=== PATIENT | female | born 1970 | race Caucasian/White ===

== ENCOUNTER → 2017-03-28 | Outpatient (CLI) | payer BC ==
--- NOTE | 2017-03-29 14:23 | MAMMOGRAPHY REPORT ---
THIS REPORT HAS BEEN AMENDED. BILATERAL DIGITAL SCREENING MAMMOGRAM TOMOSYNTHESIS WITH CAD: 03/28/2017 CLINICAL HISTORY: Routine screening. Patient has no complaints. TECHNIQUE: Breast tomosynthesis in addition to standard 2D mammography was performed. Current study was also evaluated with a Computer Aided Detection (CAD) system. COMPARISON: No prior exams were available for comparison. BREAST COMPOSITION: There are scattered areas of fibroglandular density in both breasts. FINDINGS: There are a few benign-appearing rounded calcifications in the breasts. No suspicious mass , architectural distortion or cluster of microcalcifications is seen. IMPRESSION: ACR BI-RADS CATEGORY 1: NEGATIVE There is no mammographic evidence of malignancy. Prior outside mammograms are currently being reques mesfin and if obtained they will be reviewed, compared to the current exam to assess for any more subtle changes, and an addendum will be made to this report. Otherwise, a 1 year screening mammogram is re commended. The patient will receive written notification of the results. Approximately 10% of breast cancers are not detected with mammography. A negative mammographic report should not delay biopsy if a clinically suggestive mass is present. Mago Galvan M.D. ay/:03/28/2017 17:17:18 Compounding And Finishing Supervisor: Cathi CONTRERAS(Kirk)(M), [facility] letter sent: Normal 10/29 BI-RADS Code: ACR BI-RADS Category 1: Negative AMENDMENT: 04/18/2017 Mago Galvan M.D. Prior outside mammograms from [facility] dated 10/13/2015 and 02/19/2014 became available for review. There are scattered benign-appearing microcalcifications. No new suspicious mass, arch itectural distortion or new suspicious microcalcifications are identified. There has been no signifi cant interval change compared to the outside exams. Recommend follow-up in 1 year for next annual sc reening exam. Amended BI-RADS: ACR BI-RADS Category 2: Benign letter sent: Normal 10/29
== END | disposition home or self-care (01) ==
LOC: C.MAMM 11:55
PROVIDERS: ATTEND Physician Assistant
DX: Z12.31 Encounter for screening mammogram for malignant neoplasm of breast (principal)